=== PATIENT | female | born 2005 | race Caucasian/White ===

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

== ENCOUNTER 2025-05-10 01:05 | Emergency (ER) | payer MEDICAID, SELFPAY ==
[2025-05-10 01:06] VITALS: BP 121/74; PULSE 99; RESP 18; TEMP 36.6; O2SAT 100; BMI 25.2
[2025-05-10] MEDS: Orphenadrine 60 MG/2 ML Ampul IM (01:25)
[2025-05-10] MEDS: Ketorolac 30 MG/ML Syringe IM (01:25)
--- NOTE | 2025-05-10 01:29 | EDS_ITS ---
HPI History of Present Illness Chief Complaint: Back Informant: patient and friend Narrative Narrative: Patient is a 19-year-old female with no significant past medical history. She states roughly an hour prior to arrival she was walking down the stairs when she slipped. She states that she fell she caught herself on the banister with her left arm. This caused her left arm to be pulled backwards as her body went forward. She states she did keep herself from falling and denies striking any portion of her body on the ground. However afterwards she has had difficulty moving the left arm secondary to pain. Therefore she presents for evaluation Patient states she is left-hand dominant. She denies any concern for PFSH PFS Medical History no medical history no medical history Home Medications ?Medication ?Instructions ?Recorded ?Last Taken ?Type ibuprofen 600 mg tablet 600 mg PO 4X/DAY PRN pain #4 0 tabs 05/10/25 Unknown Rx methocarbamol 500 mg tablet 1,000 mg (2 x 500 mg) PO 4 X/DAY 05/10/25 Unknown Rx PRN Muscle pain/spasm #56 tabs Allergy/AdvReac Type Severity Reaction Status Date / Time amoxicillin Allergy Hives Verified 05/10/25 01:05 Surgical History no surgical history Social History Smoking Status: Current every day smoker tobacco type: e-cigarettes ROS ROS ED Constitutional Constitutional ED: Denies chills or fever(s) Eyes Eyes: Denies change in vision ENT ENT ED: Denies sore throat Cardiovascular Cardiovascular: Reports other Details: Negative syncope ; Denies chest pain Respiratory/Chest Respiratory/Chest: Denies cough or dyspnea Gastrointestinal Gastrointestinal: Denies abdominal pain, diarrhea, nausea or vomiting Musculoskeletal Musculoskeletal: Reports other Details: Positive left shoulder pain Integumentary Denies Abrasions or rash Neurologic Neurologic: Denies headache(s), paresthesias or weakness Hematologic/Lymphatic Hematologic/Lymphatic: Denies easy bleeding or easy bruising EXAM Physical Exam Const Vital Signs: 05/10/25 01:06 Temperature 97.9 F Temperature Source Oral Pulse Rate 99 Respiratory Rate 18 Blood Pressure 121/74 H Blood Pressure Mean 89 Pulse Ox 100 Oxygen Delivery Method Room Air Positive well nourished and well developed General Appearance ED: well developed; Negative for pallor HEENT HEENT Narrative: Normocephalic atraumatic Eyes PERRL and EOMs intact bilaterally General Eye ED: Negative for scleral icterus Neck supple Neck Narrative: No bony deformity or step-off of the cervical spine no midline tenderness to palpation Resp normal respiratory effort and clear to auscultation bilaterally Cardio regular rate and regular rhythm Back/Spine Back/Spine Narrative: No bony deformity or step-off of the thoracic or lumbar spine; no midline tenderness to palpation Extremity Extremity Narrative: Left upper extremity is neurovascularly intact; AIN/PIN are intact and normal No obvious bony deformity or joint effusion; negative sulcus sign There is pain with palpation to the upper portion of the left parathoracic muscle bellies over top of the scapula as well as rhomboid and trapezius region. Pain worsens with internal and external rotation as well as abduction and shoulder shrugging. All compartments are soft and compressible going against compartment syndrome Neuro oriented x3, CN's II-XII intact bilaterally and no sensory deficits noted Sensorium / Orientation: alert Psych mental status grossly normal Skin no rashes or lesions noted and no wounds General Skin Exam: Negative for jaundice or pallor MDM MDM MDM Narrative Medical decision making narrative: Patient arrived to the ER with stable vitals. She reported a mechanical fall where she caught herself with her left arm causing it to be pulled backwards. She did not strike her head she is not on a blood thinner and therefore I have low concern for traumatic subarachnoid or subdural hemorrhage and there is no need for head CT. By physical exam there is no sign of dislocation and she did not strike the arm so I have low concern for underlying fracture so I do not feel the need for a shoulder x-ray. History and exam is most consistent with a shoulder strain. Based on the location of the pain and report of injury I do not feel there is a rotator cuff tear either. Therefore at this time there is no need for intervention other than symptomatic care and she can follow-up with her family doctor to discuss potential MRI if symptoms persist. History & Record Review Discussion w/independent historian: Patient and Friend Discharge Plan Triage Chief Complaint: Back ED Provider: Marciano De Souza Dx/Rx/DC Orders Clinical Impression: Left shoulder strain, Muscle spasm of shoulder region Instructions: ED Muscle Spasm, ED Muscle Strain, Extremity Prescriptions: New methocarbamol 500 mg tablet 1,000 mg PO 4X/DAY PRN (Reason: Muscle pain/spasm) Qty: 56 0RF ibuprofen 600 mg tablet 600 mg PO 4X/DAY PRN (Reason: pain) Qty: 40 0RF Primary Care Provider: Care Physician,No Primary Referrals: Antonio Farooq MD [Med Staff - Active Staff] - Care Physician,No Primary [Primary Care Provider] - Activity Restrictions/Additional Instructions: Please continue to stretch and heat your shoulder region to help reduce pain and speed healing. Take the prescribed medications as directed to help control symptoms as well. Symptoms should improve over the next 1 to 2 weeks. If they do not do so you may need repeat evaluation and potential MRI to assess for rotator cuff injury. Print Language: Yoruba Disposition Disposition: Home, Self Care
[2025-05-10 01:31] VITALS: BP 118/71; PULSE 84; RESP 16; TEMP 37; O2SAT 100
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
== END 2025-05-10 01:42 | disposition home or self-care (01) ==
LOC: ED 01:37
PROVIDERS: Emergency Provider Emergency Medicine; Visit Provider Emergency Medicine
DX: M62.838 Other muscle spasm (principal); S46.912A Strain of unspecified muscle, fascia and tendon at shoulder and upper arm level, left arm, initial encounter; W10.9XXA Fall (on) (from) unspecified stairs and steps, initial encounter; F17.290 Nicotine dependence, other tobacco product, uncomplicated
CPT/HCPCS: 96372; 99283